=== PATIENT | male | born 1980 | race Caucasian/White ===

== ENCOUNTER → 2021-02-16 | Outpatient (CLI) | payer BC, OTHER ==
[~2021-02-16] MED LIST: NORCO 5-325 TA1 EACH PO; PRILOSEC OTC20 MG PO; PROZAC40 MG PO
[2021-02-16 10:04] LABS: HEMOGLOBIN 15.6 gm/dl (14.0-17.5); RED BLOOD COUNT 5.23 M/UL (4.20-5.50); WHITE BLOOD COUNT 7.4 K/UL (4.5-11.0)
[2021-02-16 11:14] LABS: BUN/CREATININE RATIO 13 (0-10)
[2021-02-17 08:10] LABS: VITAMIN D, 25-HYDROXY 34.9 ng/mL (30.0-100.0)
[2021-02-17 10:10] LABS: RHEUMATOID ARTHRITIS FACTOR <10.0 IU/mL (0.0-13.9)
== END ==
LOC: LAB 09:31
PROVIDERS: Physician Assistant
DX: M25.50 Pain in unspecified joint (principal)
CPT/HCPCS: 36415; 80048; 80061; 80076; 82607; 84443; 84550; 85025; 85652; 86140; 86431

== ENCOUNTER → 2021-06-22 | Outpatient (CLI) | payer OTHER ==
[2021-06-22 11:44] LABS: HEMOGLOBIN 14.7 gm/dl (14.0-17.5); RED BLOOD COUNT 5.08 M/UL (4.20-5.50); WHITE BLOOD COUNT 12.2 K/UL (4.5-11.0)
[2021-06-22 12:08] LABS: BUN/CREATININE RATIO 12 (0-10)
== END ==
LOC: LAB 11:16
PROVIDERS: Physician Assistant
DX: E78.5 Hyperlipidemia, unspecified (principal)
CPT/HCPCS: 36415; 80048; 80061; 80076; 84550; 85025

== ENCOUNTER → 2021-07-01 | Outpatient (CLI) | payer BC | LOC: RAD 16:02 | DX: R31.9 Hematuria, unspecified (principal) | CPT/HCPCS: 74018 ==

== ENCOUNTER 2021-09-27 10:39 | Emergency (ER) | payer BC ==
[2021-09-27 11:15] LABS: HEMOGLOBIN 15.2 gm/dl (14.0-17.5); RED BLOOD COUNT 5.09 M/UL (4.20-5.50); WHITE BLOOD COUNT 13.3 K/UL (4.5-11.0)
[2021-09-27 12:23] LABS: BUN/CREATININE RATIO 16 (0-10)
[2021-09-27] MEDS ORDERED: CEPHALEXIN500 MG PO (14:17)
== END 2021-09-27 15:00 | disposition home or self-care (01) ==
LOC: ER1 10:39
PROVIDERS: Physician Assistant
DX: N30.01 Acute cystitis with hematuria (principal); N40.1 Benign prostatic hyperplasia with lower urinary tract symptoms; R39.11 Hesitancy of micturition
CPT/HCPCS: 80053; 81001; 82550; 82553; 85025; 87086; 96374; 99284; J1885; J7030; Q9967

== ENCOUNTER 2021-09-28 23:51 | Emergency (ER) | payer BC ==
[~2021-09-28 23:51] MED LIST changes: +CEPHALEXIN500 MG PO
[2021-09-29 01:01] LABS: HEMOGLOBIN 13.3 gm/dl (14.0-17.5); WHITE BLOOD COUNT 10.7 K/UL (4.5-11.0)
[2021-09-29 01:14] LABS: RED BLOOD COUNT 4.51 M/UL (4.20-5.50)
[2021-09-29 01:20] LABS: BUN/CREATININE RATIO 19 (0-10)
== END 2021-09-29 02:58 | disposition home or self-care (01) ==
LOC: ER1 23:51
PROVIDERS: Physician Assistant
DX: N39.0 Urinary tract infection, site not specified (principal); R33.9 Retention of urine, unspecified
CPT/HCPCS: 80053; 81001; 85025; 87086; 99284